=== PATIENT | female | born 1985 | race Caucasian/White ===

== ENCOUNTER 2017-06-30 11:14 | Inpatient (IN) | payer MEDICAID ==
[~2017-06-30 11:14] MED LIST: OXYTOCIN 30 UNITS/LR 500 ML BAG IV
[2017-06-30] MEDS ORDERED: CARBOPROST 250 MCG INJ IM ×2 (12:00→21:00)
[2017-06-30] MEDS ORDERED: IBUPROFEN 600 MG TAB PO (12:00)
[2017-06-30] MEDS ORDERED: LIDOCAINE 1% (MPF) 30 ML INJ INJ (12:00)
[2017-06-30] MEDS ORDERED: BUTORPHANOL 2 MG INJ IV (12:00)
[2017-06-30] MEDS ORDERED: OXYTOCIN 30 UNITS/LR 500 ML IV ×3 (12:00→21:00)
[2017-06-30] MEDS ORDERED: MISOPROSTOL 200 MCG TAB PR ×2 (12:00→21:00)
[2017-06-30] MEDS ORDERED: METHYLERGONOVINE 0.2 MG INJ IM ×2 (12:00→21:00)
[2017-06-30] MEDS ORDERED: HYDROCODONE/APAP (5/325) TAB PO ×2 (12:00→21:00)
[2017-06-30 12:23] LABS: ADD MAN DIFF? NO
[2017-06-30] MEDS ORDERED: CEFAZOLIN 2 GM/50 ML (PMX) 50 ML IV (12:30)
[2017-06-30] MEDS: LACTATED RINGER'S 500 ML IV ×2 (12:32→15:56)
[2017-06-30 12:34] LABS: WHITE BLOOD COUNT 8.1 10^3/ul (4.8-10.8)
[2017-06-30 12:34] LABS: BASOPHILS % 0.4 % (0.0-2.0); EOSINOPHILS # 0.1 10^3/ul (0.0-0.5); EOSINOPHILS % 0.9 % (0.0-7.0); HEMATOCRIT 37.2 % (37.0-47.0); HEMOGLOBIN 12.6 g/dl (12.0-16.0); LYMPHOCYTES # 2.7 10^3/ul (0.8-2.9); MEAN CORPUSCULAR HEMOGLOBIN 29.9 pg (29.0-33.0); MEAN CORPUSCULAR HGB CONC 33.9 g/dl (32.0-37.0); MEAN CORPUSCULAR VOLUME 88.4 fl (82.0-101.0); MEAN PLATELET VOLUME 12.8 fl (7.4-10.4); MONOCYTE # 0.7 10^3/ul (0.3-0.9); NEUTROPHIL # 4.7 10^3/ul (1.6-7.5); NEUTROPHILS % 57.3 % (39.0-77.0); PLATELET COUNT 221 10^3/UL (140-415); RED BLOOD COUNT 4.21 10^6/ul (4.20-5.40); RED CELL DISTRIBUTION WIDTH 14.7 % (11.5-14.5)
[2017-06-30] MEDS ORDERED: ONDANSETRON 4 MG INJ (12:52)
[2017-06-30] MEDS ORDERED: METOCLOPRAMIDE 10 MG INJ (12:52)
[2017-06-30] MEDS ORDERED: FAMOTIDINE 20 MG INJ (12:52)
[2017-06-30 12:54] LABS: INR 0.88; PT RATIO 0.9
[2017-06-30] MEDS: ONDANSETRON 4 MG INJ IV (12:54)
[2017-06-30] MEDS: METOCLOPRAMIDE 10 MG INJ IV (12:54)
[2017-06-30] MEDS: LACTATED RINGER'S 1,000 ML IV (12:54)
[2017-06-30 12:55] LABS: PARTIAL THROMBOPLASTIN TIME 29.4 Sec (25.0-35.0)
[2017-06-30] MEDS: FAMOTIDINE 20 MG INJ IV (12:55)
[2017-06-30 13:27] LABS: HEPATITIS B SURFACE ANTIGEN NEGATIVE (NEGATIVE)
[2017-06-30] MEDS ORDERED: morphine SULFATE/PF (10 MG/10 ML) INJ (13:34)
[2017-06-30] MEDS ORDERED: MIDAZOLAM 1 MG/ML 2 ML INJ (14:08)
[2017-06-30 14:16] LABS: AADO2 Cord Arterial 67.9 mmHg; Arterial Cord Blood pCO2 55.4 mmHG (25-50); CBA Base Excess -3.4 mmol/L; CBA COHb 0.4 %; CBA Oxygen Sat 24.1 mmHG; CBA Total Hemglobin 15.6 g/dl; Cord Blood Arterial pO2 15.5 mmHG (15.0-45.0); Fraction OxyHgb Cord Arterial 23.4 %; MODE ROOM AIR; MetHgb Cord Arterial 2.4 %; Sample Type CBA; Site CORD
[2017-06-30 14:18] LABS: CBV Base Excess -3.8 mmol/L; CBV COHb 1.2 %; CBV Oxygen Sat 40.9 mmHG; CBV Total Hemglobin 15.5 g/dl; Cord Blood Venous AADO2 73.4 mmHg; Cord Blood Venous pO2 18.4 mmHG (15.0-45.0); Fraction OxyHgb Cord Venous 39.6 %; MODE ROOM AIR; MetHgb Cord Venous 1.9 %; Sample Type CBV; Site CORD
[2017-06-30 14:44] LABS: RAPID PLASMA REAGIN NONREACTIVE (NR)
[2017-06-30] MEDS: OXYTOCIN 30 UNITS/LR 500 ML IV ×2 (16:45→22:04)
[2017-06-30] MEDS: KETOROLAC 30 MG INJ IV (18:15)
[2017-06-30] MEDS ORDERED: OXYCODONE/ACETAMINOPHEN (5/325) TAB PO (21:00)
[2017-06-30] MEDS ORDERED: NALOXONE (0.4 MG/ML) INJ IV (21:30)
[2017-06-30] MEDS ORDERED: DIPHENHYDRAMINE 50 MG INJ IV (21:30)
[2017-06-30] MEDS ORDERED: HYDROmorphONE 0.5 MG/0.5 ML SYG IV ×2 (21:30)
[2017-06-30] MEDS ORDERED: ONDANSETRON 4 MG INJ IV (21:30)
[2017-06-30] MEDS ORDERED: HYDROmorphONE 1 MG/ML SYG IV (21:30)
[2017-06-30] MEDS: CEFAZOLIN 1 GM/50 ML (PMX) 50 ML IVPB (22:02)
[2017-07-01] MEDS: OXYTOCIN 30 UNITS/LR 500 ML IV ×6 (00:46→20:46)
[2017-07-01] MEDS: KETOROLAC 30 MG INJ IV ×2 (04:50→11:37)
[2017-07-01] MEDS: LANOLIN 7 GM TUBE TOP (04:50)
[2017-07-01] MEDS: LACTATED RINGER'S 1,000 ML IV (06:52)
[2017-07-01 08:07] LABS: ADD MAN DIFF? NO
[2017-07-01 08:16] LABS: BASOPHILS % 0.4 % (0.0-2.0); EOSINOPHILS # 0.1 10^3/ul (0.0-0.5); EOSINOPHILS % 0.9 % (0.0-7.0); HEMATOCRIT 28.2 % (37.0-47.0); HEMOGLOBIN 9.2 g/dl (12.0-16.0); LYMPHOCYTES # 2.5 10^3/ul (0.8-2.9); LYMPHOCYTES % 30.6 % (15.0-51.0); MEAN CORPUSCULAR HEMOGLOBIN 29.5 pg (29.0-33.0); MEAN CORPUSCULAR HGB CONC 32.6 g/dl (32.0-37.0); MEAN CORPUSCULAR VOLUME 90.4 fl (82.0-101.0); MEAN PLATELET VOLUME 11.6 fl (7.4-10.4); MONOCYTE # 0.5 10^3/ul (0.3-0.9); MONOCYTES % 6.6 % (0.0-11.0); NEUTROPHILS % 61.1 % (39.0-77.0); PLATELET COUNT 183 10^3/UL (140-415); RED BLOOD COUNT 3.12 10^6/ul (4.20-5.40); RED CELL DISTRIBUTION WIDTH 14.6 % (11.5-14.5)
[2017-07-01 08:16] LABS: WHITE BLOOD COUNT 8.1 10^3/ul (4.8-10.8)
[2017-07-01] MEDS: SENNA/DOCUSATE NA (8.6MG/50MG) TAB PO ×2 (09:49→21:55)
[2017-07-01] MEDS: GUAIFENESIN/DM 5ML CUP PO (15:06)
[2017-07-01] MEDS: HYDROCODONE/APAP (5/325) TAB PO (15:13)
[2017-07-01] MEDS: IBUPROFEN 600 MG TAB PO ×2 (17:36→23:39)
[2017-07-01] MEDS: OXYCODONE/ACETAMINOPHEN (5/325) TAB PO (22:02)
[2017-07-02] MEDS: IBUPROFEN 600 MG TAB PO ×2 (05:35→12:03)
[2017-07-02] MEDS: SENNA/DOCUSATE NA (8.6MG/50MG) TAB PO ×2 (09:37→21:19)
[2017-07-02] MEDS: INFLUENZA VIRUS VACCINE 0.5 ML (DISPENSING) IM* (09:39)
[2017-07-02] MEDS: OXYCODONE/ACETAMINOPHEN (5/325) TAB PO (15:12)
[2017-07-02] MEDS: GUAIFENESIN/DM 5ML CUP PO ×2 (15:19→19:39)
[2017-07-02] MEDS: IBUPROFEN 800 MG TAB PO ×2 (17:50→23:29)
[2017-07-02] MEDS ORDERED: IBUPROFEN 600 MG TAB PO (18:00)
[2017-07-02] MEDS: AZITHROMYCIN 250 MG TAB PO (18:41)
[2017-07-02] MEDS ORDERED: OXYCODONE/ACETAMINOPHEN (5/325) TAB PO (20:00)
[2017-07-03] MEDS: IBUPROFEN 800 MG TAB PO ×2 (05:39→11:56)
[2017-07-03] MEDS: GUAIFENESIN/DM 5ML CUP PO ×2 (07:02→13:23)
[2017-07-03] MEDS: AZITHROMYCIN 250 MG TAB PO (08:37)
[2017-07-03] MEDS: SENNA/DOCUSATE NA (8.6MG/50MG) TAB PO (08:37)
[2017-07-03] MEDS: DIPHTH/TET/ACEL PERTUSS (ADULT) 0.5 ML VIAL IM* (11:58)
[2017-07-03] MEDS: OXYCODONE/ACETAMINOPHEN (5/325) TAB PO (13:23)
== END 2017-07-03 17:45 | disposition home or self-care (01) | DRG 765 ==
LOC: L-D 11:14 → PP1 18:33
PROVIDERS: Obstetrics & Gynecology
PROC: 10D00Z1 Extraction of Products of Conception, Low, Open Approach (ICD-10-PCS; principal; 2017-06-30 14:00)
DX: O13.4 Gestational [pregnancy-induced] hypertension without significant proteinuria, complicating childbirth (principal); O41.03X0 Oligohydramnios, third trimester, not applicable or unspecified; O36.5930 Maternal care for other known or suspected poor fetal growth, third trimester, not applicable or unspecified; O36.8130 Decreased fetal movements, third trimester, not applicable or unspecified; Z37.0 Single live birth; Z3A.37 37 weeks gestation of pregnancy
CPT/HCPCS: 36415; 36600; 76818; 82803; 85025; 85610; 85730; 86592; 86850; 86900; 86901; 87340; 88307; 90686; 90715; 94760; 99464